=== PATIENT | female | born 2000 | race Caucasian/White ===

== ENCOUNTER 2025-02-10 09:44 | Emergency (ER) | payer OTHER ==
[2025-02-10 10:27] LABS: #Basophils Less than 0.03 10x3/uL (0.0-0.2); #Eosinophils 0.09 10x3/uL (0.0-0.5); #Monocytes 0.51 10x3/uL (0.0-1.1); #Neutrophils 6.83 10x3/uL (1.5-8.4); %Basophils 0.1 % (0.0-2.0); %Eosinophils 1.0 % (0.0-6.0); %Lymphocytes 17.5 % (18.0-47.0); %Monocytes 5.6 % (0.0-10.0); %Neutrophils 75.0 % (40.0-75.0); Hematocrit 36.9 % (34.9-44.5); Hemoglobin 12.5 g/dL (12.0-15.5); Mean Corpuscular Hemoglobin 28.8 pg (27.0-33.0); Mean Corpuscular Volume 85.0 fL (81.6-98.3); Platelet Count 174 10x3/uL (150-450); Red Blood Cell (RBC) Count 4.34 10x6/uL (3.90-5.03); White Blood Cell (WBC) Count 9.10 10x3/uL (3.5-10.5)
[2025-02-10 10:37] LABS: Glucose, Urine (Dipstick) Normal (Negative); Leukocyte 100 (Negative); Protein, Urine (Dipstick) 30 mg/dl (Neg-Trace); Specific Gravity, Urine 1.015 (1.005-1.030)
[2025-02-10 10:51] LABS: Bacteria/HPF 2+ HPF (None Seen); CAUTI Indications for Culture Pelvic or flank pain; RBC/HPF 0-3 HPF (0-3)
[2025-02-10 10:52] LABS: Urine Culture Reflex No No
[2025-02-10] MEDS ORDERED: cefTRIAXone (ROCEPHIN) 1 GM VIAL ONE (11:29)
== END 2025-02-10 12:19 | disposition home or self-care (01) ==
LOC: CSHERS 09:44
DX: O23.12 Infections of bladder in pregnancy, second trimester (principal); N30.01 Acute cystitis with hematuria; Z3A.16 16 weeks gestation of pregnancy
CPT/HCPCS: 76815; 81001; 84702; 85025; 86900; 86901; 87086; 96365; J0696